=== PATIENT | female | born 1940 ===

== ENCOUNTER 2018-01-12 06:15 | Day surgery (SDC) | payer OTHER, BC | END 2018-01-12 11:15 | disposition home or self-care (01) | LOC: AMB-ENDOS 06:15 | DX: D12.3 Benign neoplasm of transverse colon (principal); D12.8 Benign neoplasm of rectum; K57.30 Diverticulosis of large intestine without perforation or abscess without bleeding; K64.8 Other hemorrhoids; K63.5 Polyp of colon ==